=== PATIENT | female | born 2000 | race Caucasian/White ===

== ENCOUNTER → 2021-12-03 | Outpatient (CLI) | payer OTHER ==
[2021-12-04 12:31] LABS: Hepatitis B Surface AB- Quant 75.3 mIU/mL; Hepatitis B Surface Antibody Reactive (Nonreactive)
== END | disposition home or self-care (01) ==
LOC: LABWHC1 16:13
PROVIDERS: ATTEND Otolaryngology
DX: Z01.84 Encounter for antibody response examination (principal)
CPT/HCPCS: 36415; 86706